=== PATIENT | female | born 1990 | race Two or more races ===

== ENCOUNTER 2023-08-03 10:00 | Emergency (ER) | payer BC ==
[~2023-08-03] VITALS: Ht 167.6 cm; Wt 124.7 kg
== END 2023-08-03 14:12 | disposition home or self-care (01) ==
LOC: ER 10:01
DX: S89.82XA Other specified injuries of left lower leg, initial encounter (principal); W19.XXXA Unspecified fall, initial encounter; Y93.89 Activity, other specified; Y92.89 Other specified places as the place of occurrence of the external cause; Y99.8 Other external cause status